=== PATIENT | male | born 1990 ===

== ENCOUNTER 2020-03-29 10:52 | Outpatient (CLI) | payer BC, SELFPAY ==
[2020-03-31 23:57] LABS: COVID-19 RT-PCR Result NEGATIVE (Negative)
== END 2020-03-29 11:12 ==
PROVIDERS: PCP Nurse Practitioner; Visit Provider Obstetrics & Gynecology Reproductive Endocrinology
DX: Z11.59 Encounter for screening for other viral diseases (principal)
CPT/HCPCS: U0003